=== PATIENT | female | born 1990 | race Caucasian/White ===

== ENCOUNTER 2016-06-18 16:48 | Emergency (ER) | payer OTHER ==
--- NOTE | 2016-06-18 18:14 | ER Document Report ---
HPI - HPI Patient complains to provider of: tender lump behind right ear, headache Onset: Other - 2 days Onset/Duration: Gradual Pain Level: 3 Context: 25-year-old female complaining of a lump behind her right ear with external ear tenderness for 2 days. No fever or chills. She also states that the pain is causing a headache. The lump and ear pain has decreased today. She wears earphones at work. Associated Symptoms: None Exacerbated by: Denies Relieved by: Denies Similar symptoms previously: No Recently seen / treated by doctor: No - ROS ROS below otherwise negative: Yes Systems Reviewed and Negative: Yes All other systems reviewed and negative - DERM Skin Color: Normal, [place] Past Medical History - General Information source: Patient - Social History Smoking Status: Never Smoker Frequency of alcohol use: None Drug Abuse: None Lives with: Family Family History: Reviewed & Not Pertinent - Medical History Medical History: Negative Neurological Medical History: Reports: Hx Migraine Renal/ Medical History: Denies: Hx Peritoneal Dialysis Past Surgical History: Reports: Hx Abdominal Surgery - Gastric bypass, Tummy tuck, Hx Gastric Bypass Surgery, Hx Tonsillectomy - Immunizations Immunizations up to date: Yes Hx Diphtheria, Pertussis, Tetanus Vaccination: Yes Vertical Provider Document - CONSTITUTIONAL Agree With Documented VS: Yes Exam Limitations: No Limitations - INFECTION CONTROL TRAVEL OUTSIDE OF THE [place] IN LAST 30 DAYS: No - HEENT HEENT: Atraumatic, Normocephalic. negative: Conjuctival Injection, Pharyngeal Erythema Notes: One small rt posterior auricular node. Mild superficial subareolar rash to one of the external ear folds, ear canal and TM is normal. - NECK Neck: Supple, Lymphadenopathy-Right. negative: Lymphadenopathy-Left - NEURO Level of Consciousness: Awake, Alert, Appropriate - DERM Integumentary: Rash - see above Discharge - Discharge Clinical Impression: right posterior auricular node, right ear rash Condition: Good Disposition: HOME, SELF-CARE Instructions: Lymphadenopathy ([facility]), Steroid Medication, Family Physicians / Practices Additional Instructions: the topical steroid ointment to the ear rash to er if worsening symptoms family practice referral Please complete the patient satisfaction survey if you get one, and return it.. If you do not receive a survey, then you can go to the [facility] website, [email or web address] and place your comments about your very good care. Thank you very much. It was a pleasure being your medical provider today. Forms: Return to Work
[2016-06-18 19:09] VITALS: BP 105/67
== END 2016-06-18 19:09 | disposition home or self-care (01) ==
LOC: ER 16:48
DX: R22.0 Localized swelling, mass and lump, head (principal); R21 Rash and other nonspecific skin eruption; Z98.84 Bariatric surgery status
CPT/HCPCS: 99283

== ENCOUNTER → 2017-05-15 | Outpatient (CLI) | payer BC ==
[2017-05-15 12:25] LABS: ABSOLUTE EOSINOPHILS # (AUTO) 0.1 10^3/uL (0.0-0.6); ABSOLUTE LYMPHOCYTES (AUTO) 1.6 10^3/uL (0.5-4.7); ABSOLUTE MONOCYTES (AUTO) 0.4 10^3/uL (0.1-1.4); ABSOLUTE NEUT (AUTO) 3.7 10^3/uL (1.7-8.2); BASOPHILS % (AUTO) 0.6 % (0-2); EOSINOPHILS % (AUTO) 1.2 % (0-6); HEMATOCRIT 35.2 % (36.0-47.0); HEMOGLOBIN 11.5 g/dL (12.0-15.5); LYMPHOCYTES % (AUTO) 27.1 % (13-45); MEAN CORPUSCULAR HEMOGLOBIN 26.6 pg (27.0-33.4); MEAN CORPUSCULAR HGB CONC 32.7 g/dL (32.0-36.0); MEAN CORPUSCULAR VOLUME 82 fl (80-97); PLATELET COUNT 309 10^3/uL (150-450); RED BLOOD COUNT 4.32 10^6/uL (3.72-5.28); RED CELL DISTRIBUTION WIDTH 14.1 % (11.5-14.0); SEGMENTED NEUTROPHILS % (AUTO) 64.1 % (42-78); TOTAL CELLS COUNTED % (AUTO) 100 %; WHITE BLOOD COUNT 5.8 10^3/uL (4.0-10.5)
[2017-05-15 12:46] LABS: ALANINE AMINOTRANSFERASE 20 U/L (9-52); ALBUMIN 4.4 g/dL (3.5-5.0); ALKALINE PHOSPHATASE 94 U/L (38-126); ANION GAP 12 (5-19); ASPARTATE AMINO TRANSFERASE 25 U/L (14-36); BILIRUBIN,DIRECT 0.1 mg/dL (0.0-0.4); BILIRUBIN,TOTAL 0.5 mg/dL (0.2-1.3); BLOOD UREA NITROGEN 14 mg/dL (7-20); CALCIUM 9.6 mg/dL (8.4-10.2); CARBON DIOXIDE 25 mmol/L (22-30); CHLORIDE 106 mmol/L (98-107); CHOLESTEROL 175.95 mg/dL (0-200); GLUCOSE 86 mg/dL (75-110); POTASSIUM 4.2 mmol/L (3.6-5.0); SODIUM 143.3 mmol/L (137-145); TOTAL PROTEIN 6.7 g/dL (6.3-8.2); TRIGLYCERIDES 83 mg/dL (<150)
[2017-05-15 12:58] LABS: DIRECT LDL 86 mg/dL (<100)
[2017-05-15 13:24] LABS: FERRITIN 9.72 ng/mL (6.2-137.0)
[2017-05-18 17:27] LABS: VITAMIN B1 (THIAMINE) 125.3 nmol/L (66.5-200.0)
== END ==
LOC: OD 11:46
PROVIDERS: ATTEND Surgery
DX: E16.1 Other hypoglycemia (principal); Z98.84 Bariatric surgery status
CPT/HCPCS: 36415; 80053; 80061; 82306; 82607; 82728; 82746; 83036; 83970; 84425; 85025

== ENCOUNTER 2018-05-15 16:55 | Emergency (ER) | payer BC ==
[2018-05-15] MEDS ORDERED: NORMAL SALINE 1000 ML 1,000 ML IV ONE (18:30)
[2018-05-15] MEDS ORDERED: ONDANSETRON HCL INJ/PF 4 MG/2 ML SDV IV ONE (18:32)
[2018-05-15] MEDS ORDERED: FAMOTIDINE INJ/PF 20 MG/2 ML SDV IV ONE (18:32)
--- NOTE | 2018-05-15 18:39 | ER Document Report ---
ED Medical Screen (RME) - General Chief Complaint: Dizziness Stated Complaint: DIZZINESS Time Seen by Provider: 05/15/18 18:13 Primary Care Provider: STEPHANIE DAVID [Primary Care Provider] - Follow up as needed Mode of Arrival: Ambulatory Information source: Patient TRAVEL OUTSIDE OF THE [place] IN LAST 30 DAYS: No - HPI Notes: 05/15/18 18:35 Rapid medical exam triage note. Patient is a 27-year-old female status post gastric bypass surgery who is currently 10 weeks and has chronic anemia presents with report that she feels lightheaded and dizzy and feels nauseated. The patient cannot vomit related to her previous gastric bypass. She states she feels dehydrated and orthostatic. The patient reports no fever or abdominal pain or chest pain or difficulty breathing. No numbness or paresthesia. No vaginal discharge or bleeding. Patient reports history of significant chronic anemia stating her hemoglobin is usually less than 3 and she is required to take large quantities of supplemental iron. She is unaware if she has had a B12 or a iron study performed to evaluate further. Physical exam HEENT mucous membranes are dry. Conjunctiva clear Neck supple nontender Cardiovascular regular rate and rhythm without appreciable murmur gallop or rub Lungs clear to auscultation bilaterally Abdomen old surgical scars well-healed patient is nontender. Back no CVA tenderness Extremities no edema. Plan for IV normal saline bolus and nausea medication Pepcid and lab studies to evaluate further. Question hyperemesis state. Must assess for significant anemia as reported. Please see partners continuation care note. 05/15/18 18:36 05/15/18 18:37 - Related Data Allergies/Adverse Reactions: acetaminophen [From Percocet] Allergy (Verified 06/18/16 18:23) Bleach (Sodium Hypochlorite) Allergy (Verified 06/18/16 18:23) erythromycin base [Erythromycin Base] Allergy (Verified 06/18/16 18:23) oxycodone [From Percocet] Allergy (Verified 06/18/16 18:23) adhesive tape Adverse Reaction (Verified 06/18/16 18:23) Past Medical History - Social History Chew tobacco use (# tins/day): No Frequency of alcohol use: None Drug Abuse: None - Past Medical History Cardiac Medical History: Reports: Hx Hypertension Neurological Medical History: Reports: Hx Migraine Renal/ Medical History: Denies: Hx Peritoneal Dialysis Psychiatric Medical History: Reports: Hx Depression Past Surgical History: Reports: Hx Abdominal Surgery - Gastric bypass, Tummy tuck, Hx Gastric Bypass Surgery, Hx Tonsillectomy - Immunizations Immunizations up to date: Yes Hx Diphtheria, Pertussis, Tetanus Vaccination: Yes Physical Exam - Vital signs Vitals: Temp Pulse Resp BP Pulse Ox 98.2 F 90 18 129/59 H 97 05/15/18 17:14 05/15/18 17:14 05/15/18 17:14 05/15/18 17:14 05/15/18 17:14 Course - Vital Signs Vital signs: Temp Pulse Resp BP Pulse Ox 98.2 F 90 18 129/59 H 97 05/15/18 17:14 05/15/18 17:14 05/15/18 17:14 05/15/18 17:14 05/15/18 17:14 Doctor's Discharge - Discharge Referrals: LOCALMD,NO [Primary Care Provider] - Follow up as needed
[2018-05-15 19:19] LABS: ABSOLUTE MONOCYTES (AUTO) 0.6 10^3/uL (0.1-1.4); ABSOLUTE NEUT (AUTO) 8.2 10^3/uL (1.7-8.2); BASOPHILS % (AUTO) 0.4 % (0-2); EOSINOPHILS % (AUTO) 0.4 % (0-6); HEMATOCRIT 30.9 % (36.0-47.0); LYMPHOCYTES % (AUTO) 18.2 % (13-45); MEAN CORPUSCULAR HEMOGLOBIN 23.7 pg (27.0-33.4); MEAN CORPUSCULAR HGB CONC 32.5 g/dL (32.0-36.0); MEAN CORPUSCULAR VOLUME 73 fl (80-97); MONOCYTES % (AUTO) 5.7 % (3-13); PLATELET COUNT 332 10^3/uL (150-450); RED BLOOD COUNT 4.24 10^6/uL (3.72-5.28); RED CELL DISTRIBUTION WIDTH 15.9 % (11.5-14.0); SEGMENTED NEUTROPHILS % (AUTO) 75.3 % (42-78); TOTAL CELLS COUNTED % (AUTO) 100 %; WHITE BLOOD COUNT 10.9 10^3/uL (4.0-10.5)
[2018-05-15 19:31] LABS: APPEARANCE,URINE SLIGHTLY-CLOUDY; BILIRUBIN,URINE NEGATIVE (NEGATIVE); COLOR,URINE YELLOW; GLUCOSE, URINE NEGATIVE (NEGATIVE); KETONES,URINE TRACE mg/dL (NEGATIVE); LEUKOCYTE ESTERASE,URINE TRACE (NEGATIVE); NITRITE,URINE NEGATIVE (NEGATIVE); PROTEIN,URINE NEGATIVE (NEGATIVE); URINE SPECIFIC GRAVITY 1.029
[2018-05-15 19:33] LABS: ALANINE AMINOTRANSFERASE 22 U/L (9-52); ALBUMIN 4.4 g/dL (3.5-5.0); ALKALINE PHOSPHATASE 56 U/L (38-126); ANION GAP 11 (5-19); ASPARTATE AMINO TRANSFERASE 17 U/L (14-36); BILIRUBIN,DIRECT 0.1 mg/dL (0.0-0.4); BILIRUBIN,TOTAL 0.2 mg/dL (0.2-1.3); BLOOD UREA NITROGEN 15 mg/dL (7-20); CALCIUM 9.8 mg/dL (8.4-10.2); CARBON DIOXIDE 23 mmol/L (22-30); CHLORIDE 105 mmol/L (98-107); GLUCOSE 79 mg/dL (75-110); IRON 18.7 ug/dL (37-170); LIPASE 89.9 U/L (23-300); POTASSIUM 4.3 mmol/L (3.6-5.0); SODIUM 138.7 mmol/L (137-145); TOTAL PROTEIN 7.3 g/dL (6.3-8.2)
[2018-05-15] MEDS ORDERED: METOCLOPRAMIDE HCL INJ/PF 10 MG/2 ML SDV IV ONE (20:51)
--- NOTE | 2018-05-15 20:52 | ER Document Report ---
ED General - General Chief Complaint: Dizziness Stated Complaint: DIZZINESS Time Seen by Provider: 05/15/18 18:13 Primary Care Provider: STEPHANIE DAVID [NO LOCAL MD] - Follow up as needed Mode of Arrival: Ambulatory Notes: Patient is a 27-year-old female that comes emergency department for chief complaint of episodes of dizziness and lightheadedness. She is at 10 weeks gestation by first trimester ultrasound, she is a history of gastric bypass, symptomatic anemia, and has required transfusions in the past. She is concerned she might require transfusion today. She states that she generally does okay with position changes and standing but if she stands for long period of time she will start to get lightheaded, feel like her skin gets yellowish, and occasionally feel dizzy. She denies any chest pain, shortness of breath, abdominal pain, vaginal bleeding, fever/chills. She cannot vomit because of the bypass. She also reports she feels that she may be dehydrated. TRAVEL OUTSIDE OF THE [place] IN LAST 30 DAYS: No - Related Data Allergies/Adverse Reactions: acetaminophen [From Percocet] Allergy (Verified 06/18/16 18:23) Bleach (Sodium Hypochlorite) Allergy (Verified 06/18/16 18:23) erythromycin base [Erythromycin Base] Allergy (Verified 06/18/16 18:23) oxycodone [From Percocet] Allergy (Verified 06/18/16 18:23) adhesive tape Adverse Reaction (Verified 06/18/16 18:23) Past Medical History - General Information source: Patient - Social History Smoking Status: Never Smoker Chew tobacco use (# tins/day): No Frequency of alcohol use: None Drug Abuse: None Lives with: Family Family History: Reviewed & Not Pertinent Patient has suicidal ideation: No Patient has homicidal ideation: No - Past Medical History Cardiac Medical History: Reports: Hx Hypertension Neurological Medical History: Reports: Hx Migraine Renal/ Medical History: Denies: Hx Peritoneal Dialysis Psychiatric Medical History: Reports: Hx Depression Past Surgical History: Reports: Hx Abdominal Surgery - Gastric bypass, Tummy tuck, Hx Gastric Bypass Surgery, Hx Tonsillectomy - Immunizations Immunizations up to date: Yes Hx Diphtheria, Pertussis, Tetanus Vaccination: Yes Review of Systems - Review of Systems Constitutional: No symptoms reported EENT: No symptoms reported Cardiovascular: No symptoms reported Respiratory: No symptoms reported Gastrointestinal: See HPI Genitourinary: See HPI Female Genitourinary: See HPI Musculoskeletal: No symptoms reported Skin: No symptoms reported Hematologic/Lymphatic: No symptoms reported Neurological/Psychological: No symptoms reported Physical Exam - Vital signs Vitals: Temp Pulse Resp BP Pulse Ox 98.2 F 90 18 129/59 H 97 05/15/18 17:14 05/15/18 17:14 05/15/18 17:14 05/15/18 17:14 05/15/18 17:14 - Notes Notes: GENERAL: Alert, interacts well. No acute distress. HEAD: Normocephalic, atraumatic. EYES: Pupils equal, round, and reactive to light. Extraocular movements intact. ENT: Oral mucosa moist, tongue midline. Oropharynx unremarkable. Airway patent. Nares patent, no nasal septal hematoma, TM's intact. NECK: Full range of motion. Supple. Trachea midline. LUNGS: Clear to auscultation bilaterally, no wheezes, rales, or rhonchi. No resp iratory distress. HEART: Regular rate and rhythm. No murmur ABDOMEN: Soft, non-tender. Non-distended. Bowel sounds present in all 4 quadrants. GENITOURINARY: Deferred EXTREMITIES: Moves all 4 extremities spontaneously. No edema, normal radial and dorsalis pedis pulses bilaterally. No cyanosis. BACK: no cervical, thoracic, lumbar midline tenderness. No saddle anesthesia, normal distal neurovascular exam. NEUROLOGICAL: Alert and oriented x3. Normal speech. [cranial nerves II through XII grossly intact]. PSYCH: Normal affect, normal mood. SKIN: Warm, dry, normal turgor. No rashes or lesions noted. Course - Re-evaluation Re-evalutation: Discussed workup with patient. Hemoglobin is 10, patient was very excited about this. Chemistry is generally unremarkable. Urinalysis not overtly infected although does have 3+ bacteria, this was cultured. Patient has no urinary symptoms. Patient was given IV fluids. While discussing the workup patient told me she was starting to get a headache, she has had headaches intermittently , this is not worse, she requests treatment for it however. She was given Reglan. After this she is smiling and stated is 100% gone. Patient reporting dizziness/lightheadedness only after insistence standing, this resolves with sitting down or lying down, I explained that it is possible that she will have more of this as develops, however if she develops syncope, chest pain, shortness of breath, fever, abdominal pain, vomiting, or severe headache she needs to return immediately. Patient states satisfaction and agreement. - Vital Signs Vital signs: Temp Pulse Resp BP Pulse Ox 97.8 F 76 18 105/53 L 100 05/15/18 21:03 05/15/18 22:39 05/15/18 22:39 05/15/18 22:39 05/15/18 22:39 - Laboratory Result Diagrams: 05/15/18 19:06 05/15/18 19:06 Laboratory results interpreted by me: 05/15/18 05/15/18 05/15/18 19:06 19:06 19:06 WBC 10.9 H Hgb 10.0 L Hct 30.9 L MCV 73 L MCH 23.7 L RDW 15.9 H Iron 18.7 L Beta HCG, Quant 676582.00 H Urine Ketones TRACE H Urine Urobilinogen 4.0 H Ur Leukocyte Esterase TRACE H Urine Ascorbic Acid 40 H Discharge - Discharge Clinical Impression: Dizziness, Lightheadedness, First trimester Condition: Stable Disposition: HOME, SELF-CARE Additional Instructions: You have been given rehydration and treatment for the headache that developed tonight. Your evaluation is reassuring with a hemoglobin of 10, and remaining values not show concerning findings at this time. Stays well-hydrated as you can, if you become lightheaded sit, if you become very lightheaded lie down and place your feet above your heart. Follow-up with primary care. Return if you worsen including passing out, difficulty breathing, chest pain, abdominal pain, vaginal bleeding, or any other concerning or worsening symptoms. Referrals: LOCALMD,NO [NO LOCAL MD] - Follow up as needed
[2018-05-15 22:45] VITALS: BP 105/53
== END 2018-05-15 22:45 | disposition home or self-care (01) ==
LOC: ER 16:55
DX: O26.91 Pregnancy related conditions, unspecified, first trimester (principal); R42 Dizziness and giddiness; O99.841 Bariatric surgery status complicating pregnancy, first trimester; Z3A.10 10 weeks gestation of pregnancy; Z88.6 Allergy status to analgesic agent; Z88.3 Allergy status to other anti-infective agents
CPT/HCPCS: 99284; 96361; 96374; 96375; 36415; 87086; 82607; 84702; 83540; 83690; 85025; 80053; 81001; J2765; J2405; J7030; S0028

== ENCOUNTER 2018-05-23 14:59 | Emergency (ER) | payer BC ==
[2018-05-23 15:28] VITALS: BP 112/56
== END 2018-05-23 19:20 | disposition left against medical advice (07) ==
LOC: ER 14:59
DX: Z53.21 Procedure and treatment not carried out due to patient leaving prior to being seen by health care provider (principal)

== ENCOUNTER 2018-05-24 13:52 | Emergency (ER) | payer OTHER, BC ==
--- NOTE | 2018-05-24 14:44 | ER Document Report ---
ED Medical Screen (RME) - General Chief Complaint: Syncope Stated Complaint: HEAD INJURY Time Seen by Provider: 05/24/18 14:33 Notes: This 27-year-old female patient is 11 weeks 2 days . She comes emergency room reporting a syncopal episode while at work yesterday, with headache. She did come the emergency room yesterday and left without being seen. She reports she had another syncopal episode and fell and struck her head this afternoon at work. She was seen here 9 days ago complaining of dizziness. She does have a history of chronic anemia, her hemoglobin was 10.0 on 05/15/2018. She is requesting an ultrasound to make sure her baby is okay due to her falling, however there is no history of striking her abdomen. I have greeted and performed a rapid initial assessment of this patient. A comprehensive ED assessment and evaluation of the patient, analysis of test results and completion of the medical decision making process will be conducted by additional ED providers. TRAVEL OUTSIDE OF THE [place] IN LAST 30 DAYS: No - Related Data Allergies/Adverse Reactions: acetaminophen [From Percocet] Allergy (Verified 05/24/18 13:53) Bleach (Sodium Hypochlorite) Allergy (Verified 05/24/18 13:53) erythromycin base [Erythromycin Base] Allergy (Verified 05/24/18 13:53) oxycodone [From Percocet] Allergy (Verified 05/24/18 13:53) adhesive tape Adverse Reaction (Verified 05/24/18 13:53) Past Medical History - Social History Chew tobacco use (# tins/day): No Frequency of alcohol use: None Drug Abuse: None - Past Medical History Cardiac Medical History: Reports: Hx Hypertension Neurological Medical History: Reports: Hx Migraine Renal/ Medical History: Denies: Hx Peritoneal Dialysis Psychiatric Medical History: Reports: Hx Depression Past Surgical History: Reports: Hx Abdominal Surgery - Gastric bypass, Tummy tuck, Hx Gastric Bypass Surgery, Hx Tonsillectomy - Immunizations Immunizations up to date: Yes Hx Diphtheria, Pertussis, Tetanus Vaccination: Yes Physical Exam - Vital signs Vitals: Temp Pulse Resp BP Pulse Ox 98.2 F 85 18 111/49 L 100 05/24/18 13:57 05/24/18 13:57 05/24/18 13:57 05/24/18 13:57 05/24/18 13:57 Course - Vital Signs Vital signs: Temp Pulse Resp BP Pulse Ox 98.2 F 85 18 111/49 L 100 05/24/18 13:57 05/24/18 13:57 05/24/18 13:57 05/24/18 13:57 05/24/18 13:57
[2018-05-24 15:18] LABS: ABSOLUTE LYMPHOCYTES (AUTO) 0.9 10^3/uL (0.5-4.7); ABSOLUTE MONOCYTES (AUTO) 0.4 10^3/uL (0.1-1.4); BASOPHILS % (AUTO) 0.4 % (0-2); EOSINOPHILS % (AUTO) 0.1 % (0-6); HEMATOCRIT 31.8 % (36.0-47.0); HEMOGLOBIN 10.2 g/dL (12.0-15.5); LYMPHOCYTES % (AUTO) 8.2 % (13-45); MEAN CORPUSCULAR HEMOGLOBIN 23.5 pg (27.0-33.4); MEAN CORPUSCULAR HGB CONC 32.2 g/dL (32.0-36.0); MEAN CORPUSCULAR VOLUME 73 fl (80-97); MONOCYTES % (AUTO) 3.4 % (3-13); PLATELET COUNT 347 10^3/uL (150-450); RED BLOOD COUNT 4.36 10^6/uL (3.72-5.28); RED CELL DISTRIBUTION WIDTH 16.4 % (11.5-14.0); SEGMENTED NEUTROPHILS % (AUTO) 87.9 % (42-78); TOTAL CELLS COUNTED % (AUTO) 100 %; WHITE BLOOD COUNT 11.4 10^3/uL (4.0-10.5)
[2018-05-24 15:22] LABS: APPEARANCE,URINE SLIGHTLY-CLOUDY; BILIRUBIN,URINE NEGATIVE (NEGATIVE); GLUCOSE, URINE NEGATIVE (NEGATIVE); KETONES,URINE 20 mg/dL (NEGATIVE); LEUKOCYTE ESTERASE,URINE MODERATE (NEGATIVE); NITRITE,URINE NEGATIVE (NEGATIVE); PROTEIN,URINE 100 mg/dL (NEGATIVE); URINE SPECIFIC GRAVITY 1.053
[2018-05-24 15:23] LABS: COLOR,URINE YELLOW
[2018-05-24 15:33] LABS: ALANINE AMINOTRANSFERASE 14 U/L (9-52); ALBUMIN 4.3 g/dL (3.5-5.0); ALKALINE PHOSPHATASE 56 U/L (38-126); ANION GAP 11 (5-19); ASPARTATE AMINO TRANSFERASE 18 U/L (14-36); BILIRUBIN,DIRECT 0.2 mg/dL (0.0-0.4); BILIRUBIN,TOTAL 0.3 mg/dL (0.2-1.3); BLOOD UREA NITROGEN 15 mg/dL (7-20); CALCIUM 9.9 mg/dL (8.4-10.2); CARBON DIOXIDE 20 mmol/L (22-30); CHLORIDE 106 mmol/L (98-107); GLUCOSE 100 mg/dL (75-110); POTASSIUM 4.8 mmol/L (3.6-5.0); SODIUM 137.4 mmol/L (137-145); TOTAL PROTEIN 7.1 g/dL (6.3-8.2)
[2018-05-24 17:01] LABS: T.VAGINALIS (WET MOUNT) NO TRICHOMONAS SEEN; WBCS (WET MOUNT) 3+ WBCS SEEN; YEAST (WET MOUNT) YEAST SEEN
[2018-05-24 17:02] LABS: BACTERIA (WET MOUNT) 4+ BACTERIA SEEN; EPITHELIALS (WET MOUNT) 3+ EPITHELIALS SEEN; RBCS (WET MOUNT) FEW RBCS SEEN
--- NOTE | 2018-05-24 17:03 | ER Document Report ---
ED General - General Chief Complaint: Syncope Stated Complaint: HEAD INJURY Time Seen by Provider: 05/24/18 14:33 Notes: Patient is a 27-year-old female who presents emergency department with a chief complaint of a syncopal episode at work. She stated that she felt dizzy and passed out and hit the back of her head on concrete. She states that she passed out for about a minute and she states that she has a migraine headache from hitting her head. She does not have any neurological deficits at this time. She is able to converse. Per the patient, she was diagnosed with bacterial vaginosis 6 weeks ago, but was not treated because her OB does not treat bacterial vaginosis at less than 12 weeks. She has a past medical history of gastric bypass surgery 6 years ago, symptomatic anemia, and reactive hypoglycemia. Denies any nausea, vomiting, or diarrhea. Admits to vaginal discharge and itchiness. TRAVEL OUTSIDE OF THE [place] IN LAST 30 DAYS: No - Related Data Allergies/Adverse Reactions: acetaminophen [From Percocet] Allergy (Verified 05/24/18 13:53) Bleach (Sodium Hypochlorite) Allergy (Verified 05/24/18 13:53) erythromycin base [Erythromycin Base] Allergy (Verified 05/24/18 13:53) oxycodone [From Percocet] Allergy (Verified 05/24/18 13:53) adhesive tape Adverse Reaction (Verified 05/24/18 13:53) Past Medical History - Social History Smoking Status: Unknown if Ever Smoked Chew tobacco use (# tins/day): No Frequency of alcohol use: None Drug Abuse: None Family History: Reviewed & Not Pertinent Patient has suicidal ideation: No Patient has homicidal ideation: No - Past Medical History Cardiac Medical History: Reports: Hx Hypertension Neurological Medical History: Reports: Hx Migraine Renal/ Medical History: Denies: Hx Peritoneal Dialysis Psychiatric Medical History: Reports: Hx Depression Past Surgical History: Reports: Hx Abdominal Surgery - Gastric bypass, Tummy tuck, Hx Gastric Bypass Surgery, Hx Tonsillectomy - Immunizations Immunizations up to date: Yes Hx Diphtheria, Pertussis, Tetanus Vaccination: Yes Review of Systems - Review of Systems Notes: REVIEW OF SYSTEMS: CONSTITUTIONAL : Denies recent illness. Denies recent unintentional weight loss. Denies fever, chills, or sweats. EENT: Denies eye, ear, throat, or mouth pain, discharge, or symptoms. Denies nasal or sinus congestion. CARDIOVASCULAR: Denies chest pain. RESPIRATORY: Denies shortness of breath, cough, congestion, difficulty breathing, or wheezing. GASTROINTESTINAL: Denies nausea, vomiting, and diarrhea. Denies abdominal pain. Denies constipation. GENITOURINARY: Denies difficulty urinating, burning, blood in urine, urgency or frequency. MUSCULOSKELETAL: Denies neck and back pain. Denies joint pain or swelling. SKIN: Denies rash, itchiness, or lesions HEMATOLOGIC : Denies easy bruising or bleeding. LYMPHATIC: Denies swollen, painful, enlarged glands. NEUROLOGICAL: Denies no numbness or tingling denies weakness. HPI for headache. denies altered mental status. Denies alteration in speech. PSYCHIATRIC: Denies stress, anxiety, alteration in sleep patterns, or depression. GETTER WELDER: Vaginal discharge. All other systems reviewed and negative. Physical Exam - Vital signs Vitals: Temp Pulse Resp BP Pulse Ox 98.2 F 85 18 111/49 L 100 05/24/18 13:57 05/24/18 13:57 05/24/18 13:57 05/24/18 13:57 05/24/18 13:57 - Notes Notes: PHYSICAL EXAMINATION: GENERAL: Appears well, healthy, well-nourished, no acute distress. HEAD: Normocephalic, atraumatic. EYES: PERRL, conjunctiva normal, all extraocular movements intact, sclera nonicteric ENT: Moist mucous membranes. NECK: Supple, no noticeable swelling, redness, rash. Normal range of motion. LUNGS: Equal breath sounds bilaterally and clear to auscultation. No wheezes rales or rhonchi. CARDIOVASCULAR: S1-S2, regular rate, regular rhythm. Radial pulses 2+, normal. ABDOMEN: Normoactive bowel sounds. Soft, nontender, no guarding, no rebound te nderness, and no masses palpated. EXTREMITIES: Normal strength and range of motion, no pitting or edema. No cyanosis. NEUROLOGICAL: Moves all extremities upon command. Strength 5/5 in all extremi ties. PSYCH: Normal mood, normal affect. SKIN: Warm, dry. No rash, lesions, ulcerations noted. Normal skin turgor. GETTER WELDER: White discharge noted to vagina. Course - Re-evaluation Re-evalutation: 05/24/18 17:00 Due to patient's history of having bacterial vaginosis and not being treated with Flagyl, a pelvic exam was done with BOGDAN Suazo at bedside. I do not suspect patient has an acute intracranial bleed, or any head injury that warrants a CT of the head at this time. She has no neurological deficits. She is smiling during my exam and conversing well. No changes in voice. I did a bedside ultrasound and saw movement and cardiac movement. 05/24/18 17:47 Patient's wet mount shows 3+ epithelial cells and 4+ bacteria. She will be sent home with Flagyl to treat bacterial vaginosis. She also has yeast noted. She will be given Diflucan here in the emergency department. I discussed this with her. She verbalized understanding. She will receive Tylenol for her headache. Her EKG shows sinus rhythm with no ST elevations or depressions. Verbal discharge instructions were given to the patient. They verbalized understanding. They are stable for discharge. - Vital Signs Vital signs: Temp Pulse Resp BP Pulse Ox 98.2 F 82 16 122/73 100 05/24/18 13:57 05/24/18 18:03 05/24/18 18:03 05/24/18 18:03 05/24/18 13:57 - Laboratory Result Diagrams: 05/24/18 14:48 05/24/18 14:48 Laboratory results interpreted by me: 05/24/18 05/24/18 05/24/18 14:48 14:48 14:48 WBC 11.4 H Hgb 10.2 L Hct 31.8 L MCV 73 L MCH 23.5 L RDW 16.4 H Seg Neutrophils % 87.9 H Lymphocytes % 8.2 L Absolute Neutrophils 10.0 H Carbon Dioxide 20 L Urine Protein 100 H Urine Ketones 20 H Urine Urobilinogen 2.0 H Ur Leukocyte Esterase MODERATE H Urine Ascorbic Acid 40 H - EKG Interpretation by Me Additional EKG results interpreted by me: 05/24/18 17:56 Sinus rhythm. Rate 60. AR 140; QRS 92; QT 416; QTC 416. No ST elevations or depressions. Discharge - Discharge Clinical Impression: Vaginal candidiasis, Bacterial vaginosis Syncopal episodes Qualifiers: Syncope type: unspecified Qualified Code(s): R55 - Syncope and collapse Condition: Stable Disposition: HOME, SELF-CARE Additional Instructions: You were seen today in the emergency department for passing out at work. Your physical exam is normal, along with your labs. Your hemoglobin is normal, and actually is better than your last visit. You have bacterial vaginosis and yeast infection. Your yeast infection was treated here in the emergency department. Please take your antibiotic for your bacterial vaginosis as prescribed. Please follow-up with your OB in regards to this visit. Prescriptions: Metronidazole [Flagyl 500 mg Tablet] 500 mg PO Q6H #28 tablet Forms: Return to Work
[2018-05-24] MEDS ORDERED: ACETAMINOPHEN 325 MG TABLET PO ONE (17:47)
[2018-05-24] MEDS ORDERED: FLUCONAZOLE 100 MG TABLET PO ONE (17:52)
[2018-05-24 18:05] VITALS: BP 122/73
[2018-05-24 18:32] LABS: CHLAM PCR NOT DETECTED (NOT DETECT); GON PCR NOT DETECTED (NOT DETECT)
--- NOTE | 2018-05-24 19:23 | EKG REPORT ---
SEVERITY:- NORMAL ECG - SINUS RHYTHM : Confirmed by: Ramandeep Hussein MD 24-May-2018 19:23:20
== END 2018-05-24 18:05 | disposition home or self-care (01) ==
LOC: ER 13:52
DX: O9A.211 Injury, poisoning and certain other consequences of external causes complicating pregnancy, first trimester (principal); S09.90XA Unspecified injury of head, initial encounter; R55 Syncope and collapse; R42 Dizziness and giddiness; W18.30XA Fall on same level, unspecified, initial encounter; Y99.0 Civilian activity done for income or pay; O23.591 Infection of other part of genital tract in pregnancy, first trimester; B96.89 Other specified bacterial agents as the cause of diseases classified elsewhere; O98.811 Other maternal infectious and parasitic diseases complicating pregnancy, first trimester; B37.3 Candidiasis of vulva and vagina; Z3A.11 11 weeks gestation of pregnancy
CPT/HCPCS: 36415; 80053; 81001; 85025; 86850; 86870; 86900; 86901; 87210; 87491; 87591; 93005; 93010; 99284